=== PATIENT | female | born 1960 | race Caucasian/White ===

== ENCOUNTER 2019-01-14 06:20 | Day surgery (SDC) | payer OTHER ==
[~2019-01-14] VITALS: Ht 162.6 cm; Wt 140.6 kg
--- NOTE | ~2019-01-14 | OR ---
[facility] [address], [place] [address] Draft DATE OF OPERATION: 01/14/2019 SURGEON: Harper Agee MD PREOPERATIVE DIAGNOSIS: Colon screening. POSTOPERATIVE DIAGNOSIS: Extensive diverticulosis. No evidence of polyps. PROCEDURE: Total colonoscopy of cecum. ANESTHESIA: Intravenous sedation, fentanyl 100 mcg, Versed 4 mg. INDICATION: This 58-year-old white woman is a patient Dr. Leigh Ann Luna is referred for screening colonoscopy. She has no current bleeding, diarrhea or constipation, nor abdominal or perianal pain. She has no family history of colon cancer. She is admitted to undergo colonoscopy. She understands the risks of bleeding, infection, and perforation. FINDINGS: The prep was good. Complete colonoscopy was undertaken of the cecum without question. There were numerous diverticula most dominantly in the left and sigmoid areas, but diverticula extending into the right colon to a degree. There was no sign of polyps, colitis, or other abnormality. DESCRIPTION OF PROCEDURE: The patient was brought to the endoscopy suite, given intravenous sedation to a point of slurred speech and nystagmus with full cardiopulmonary monitoring. Digital rectal examination was found to be normal. An Olympus video colonoscope was passed in the rectum and manipulated throughout the colon noting numerous diverticula of the sigmoid and left colon. Once beyond the sigmoid, the scope was easily passed ultimately to the cecum. Ileocecal valve and appendiceal orifice were normal. The scope was withdrawn from that point and careful examination upon withdrawal of scope showed no sign of polyps or colitis, but numerous diverticula throughout. Retroflexed view of the rectum was normal. Scope was removed. The patient was taken to recovery room in good condition. PATIENT NAME: MATTIE VALENTIN OPERATIVE REPORT DATE OF : 64 REPORT #: [id number] PHYSICIAN: HARPER AGEE MD PCP: LEIGH ANN LUNA MD REPORT IS CONFIDENTIAL AND NOT TO BE RELEASED WITHOUT AUTHORIZATION [facility] [address], [place] [address] Draft CONCLUDING DIAGNOSIS: Diverticulosis. No evidence of polyps. PLAN: Repeat in 10 years or sooner if clinically indicated. Recommend high-fiber diet. She will return to the ongoing care of Dr. Luna. MD STEFFEN Darling/MODL /[id number] cc: Leigh Ann Luna MD Copies: LEIGH ANN LUNA MD ~ PATIENT NAME: LAVONNE VALENTINTIFFANY Lucas OPERATIVE REPORT DATE OF : 64 REPORT #: [id number] PHYSICIAN: HARPER AGEE MD PCP: LEIGH ANN LUNA MD REPORT IS CONFIDENTIAL AND NOT TO BE RELEASED WITHOUT AUTHORIZATION
[2019-01-14] MEDS ORDERED: ZOLOFT50 MG PO (06:41)
--- NOTE | 2019-01-14 08:00 | NUR ---
01/14/19 0800 Chrissy Santana 0753 PT ARRIVED TO PACU ON 3L VIA NC, RESP EVEN AND UNLABORED. PT AWAKE AND TALKING TO RN. PT DENIES PAIN AND NAUSEA. PT ENCOURAGED TO PASS GAS/AIR. PLAN OF CARE DISCUSSED. 0759 O2 NC REMOVED, O2 SAT 100%.
== END 2019-01-14 08:30 | disposition home or self-care (01) ==
LOC: OPS 06:20 → DS 06:20 → OPS 06:45 → DS 06:45 → OPS 08:30
PROVIDERS: Surgery
PROC: 0DJD8ZZ Inspection of Lower Intestinal Tract, Via Natural or Artificial Opening Endoscopic (ICD-10-PCS; principal; 2019-01-14 06:45)
DX: Z12.11 Encounter for screening for malignant neoplasm of colon (principal); K57.30 Diverticulosis of large intestine without perforation or abscess without bleeding; E66.01 Morbid (severe) obesity due to excess calories; F41.1 Generalized anxiety disorder; Z68.43 Body mass index [BMI] 50.0-59.9, adult; Z98.890 Other specified postprocedural states
CPT/HCPCS: 99153; G0500; J2250; J3010; J7120

== ENCOUNTER 2019-05-23 06:23 | Inpatient (IN) | payer OTHER ==
[~2019-05-23] VITALS: Ht 162.6 cm; Wt 138.8 kg
--- NOTE | ~2019-05-23 | DS ---
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 She presented to the emergency room on May 23, 2019, with significant epigastric and right upper abdominal pain. The day before in [place], [place], as an outpatient, she underwent a gallbladder ultrasound showing a 2.6 cm gallstone wedged in the infundibulum of the gallbladder. Her symptoms were persistent and on that basis, she presented to the emergency room where she was evaluated by Dr. Juan. Her primary physician is Dr. Luna in [place], but the patient lives in [place] commuting to [place] for work. Evaluation in the emergency room showed her to be tender in the right upper abdomen and although her lab studies were essentially normal, she was considered highly probable to have acute cholecystitis and on that basis, admitted for further evaluation and care. PAST MEDICAL HISTORY: Significant for uterine endometrial ablation as well as tonsillectomy. The only medication she takes is sertraline (Zoloft). She is not known to have diabetes, pulmonary or renal issues. SOCIAL HISTORY: She does not smoke or drink alcohol. PERTINENT PHYSICAL EXAMINATION: GENERAL: At the time of admission showed a morbidly obese woman, accompanied by her daughter. HEENT: Mucous membranes are slightly dry. Trachea midline. CHEST: Clear. HEART: Regular without murmur. ABDOMEN: Quite markedly obese with mild tenderness in the right upper abdomen. No sign of ascites. She had no clubbing, cyanosis, or edema. LABORATORY DATA: Laboratory studies showed a white count of only 8.8, hematocrit 40.8, platelets 248,000. Chem profile essentially normal. Globulin 3.7. Lipase normal and AST was 44. Other liver enzymes were normal. Urinalysis was normal except for 5 RBCs and squames were 2+. PATIENT NAME: MATTIE VALENTIN DISCHARGE SUMMARY DATE OF : 64 REPORT #: [id number] PHYSICIAN: HARPER AGEE MD PCP: LEIGH ANN LUNA MD REPORT IS CONFIDENTIAL AND NOT TO BE RELEASED WITHOUT AUTHORIZATION [facility] [address], [place] [address] Draft HOSPITAL COURSE: Her symptoms were mild but persistent. She was given intravenous antibiotics, parenteral pain medication, IV fluid resuscitation and so on. The following day on May 24, 2019, she underwent an attempt at laparoscopic cholecystectomy. She was found to have an impressively severe dense firm gallbladder with significant adherence of omental adhesions to the gallbladder. Though her morbid obesity was challenging enough, it was quite clear that a laparoscopic approach would be quite impossible to provide for cholecystectomy as intended. Conversion to open operation was undertaken. This was a very prolonged, complicated, and difficult operation. The gallbladder was markedly thickened far more so than her clinical picture would have revealed. Ultimately found was a single large gallstone as suspected obstructing the outlet of the gallbladder. There was occlusion of the cystic duct itself. There was purulence within the gallbladder itself, which was decompressed. Gram stain and cultures of the fluid showed only white cells, no organisms, though she had been on antibiotics preoperatively of course. A drain was placed. A cholangiogram was deemed meddlesome given the anatomic findings and was not performed. A drain was placed. Postoperatively, she had marked improvement. She was transitioned to meropenem antibiotic and ultimately to Augmentin based on the findings at operation. The drain was removed on postoperative day #1 as there was no sign of bile leak or other problem. She had progressive improvement and tolerating oral intake, ambulating well and pain controlled with amount of opiate medications, though Percocet was available as a backup. It is anticipated she will be discharged to home with Augmentin for five days. She is to ambulate as much as possible, so as to avoid complications of her obesity and immobility (DVT, etc.) She will return to me in approximately 2 weeks. If that needs to be modified, she will let me know. Her Steri-Strips were left in place. They are to be removed when they curl up on their own. If she has any problems upon discharge, she will let me know. DISCHARGE DIAGNOSES: 1. Severe acute calculous cholecystitis. 2. Status post laparoscopic converted to open cholecystectomy, prolonged, complicated, and difficult, May 24, 2019. 3. Super obesity (BMI greater than 52). 4. Anxiety disorder. DISCHARGE MEDICATIONS: PATIENT NAME: MATTIE VALENTIN DISCHARGE SUMMARY DATE OF : 64 REPORT #: [id number] PHYSICIAN: HARPER AGEE MD PCP: LEIGH ANN LUNA MD REPORT IS CONFIDENTIAL AND NOT TO BE RELEASED WITHOUT AUTHORIZATION [facility] [address] [place] [address] Draft 1. Ibuprofen 600 mg p.o. q.6 hours as needed for pain, #60, refill one. 2. Percocet 7.5/325 1-2 tabs q.6 hours as needed for pain, quantity #6, not 60 as printed. 3. Acetaminophen 1000 mg p.o. q.6 hours as needed for pain, #60. 4. Famotidine 20 mg p.o. q.12 hours, #60. 5. Amoxicillin/potassium clavulanate (Augmentin) 875 mg one p.o. b.i.d., #10. 6. She will continue with sertraline 50 mg p.o. daily. MD STEFFEN Darling/SANTIAGOL /[id number] cc: MD Darrian Phillips MD Copies: LEIGH ANN LUNA MD, MICHAEL MD ~ PATIENT NAME: MATTIE VALENTIN DISCHARGE SUMMARY DATE OF : 64 REPORT #: [id number] PHYSICIAN: HARPER AGEE MD PCP: LEIGH ANN LUNA MD REPORT IS CONFIDENTIAL AND NOT TO BE RELEASED WITHOUT AUTHORIZATION
[~2019-05-23 06:23] MED LIST: ZOLOFT100 MG PO
--- OUTSIDE RECORDS SUMMARY | 2019-05-23 06:26 | XMS ---
PreManage Notification: MATTIE VALENTIN Security Sausage Tier Events No recent Security Events currently on file CRITERIA MET - [facility] - 2 Visits in 30 Days CARE PROVIDERS Jerrod Luna MD PHONE: Unknown Aparna has no Care Guidelines for this patient. [place] VISIT COUNT (12 MO.) 1 Petey Musa [facility] TOTAL 2 NOTE: Visits indicate total known visits. ED/UCC VISIT TRACKING (12 MO.) 05/23/2019 06:24 JUVENTINO [place] TYPE: Emergency COMPLAINT: - POSS CHOLECYSTITIS 04/28/2019 00:05 Petey DA SILVA [place] TYPE: Emergency DIAGNOSES: - Chest Pressure - Essential (primary) hypertension - Other chest pain - chest pain INPATIENT VISIT TRACKING (12 MO.) No inpatient visits to display in this time frame [id number]
[2019-05-23] MEDS ORDERED: IBUPROFEN200 M1 PO (09:39)
[2019-05-25] MEDS ORDERED: IBUPROFEN600 MG PO (13:09)
[2019-05-25] MEDS ORDERED: OXYCODON-ACETA1 EAC2 PO (13:10)
[2019-05-25] MEDS ORDERED: TYLENOL EXTRA500 MG PO (13:10)
[2019-05-25] MEDS ORDERED: FAMOTIDINE20 MG PO (13:10)
--- NOTE | 2019-05-25 16:41 | HP ---
[facility] [address] [place], [place] [address] Signed ADMISSION DATE: 05/23/2019 REASON FOR ADMISSION: Acute calculous cholecystitis. HISTORY OF PRESENT ILLNESS: This morbidly obese 58-year-old white woman (BMI 52.5) has had a week history of intermittent upper abdominal pain in the postprandial time frame. She has had no fever or chills. No nausea or vomiting, but recurrent pain following eating. She underwent an ultrasound of the right upper abdomen at the [facility] showing a 2.6 cm gallstone with gallbladder wall thickening and edema. She subsequently presented to the emergency room, where she was evaluated by Dr. Juan today confirming those findings and noting normal appearing liver enzymes and other lab studies. Given her tenderness, pain, and findings on ultrasound, she was admitted for further evaluation and care for acute calculous cholecystitis. PAST MEDICAL HISTORY: Dominantly significant for her morbid obesity. She is post menopausal. She has undergone uterine ablated therapy in the past. She does have anxiety as an underlying issue. She has undergone tonsillectomy as well as uterine ablation as noted. MEDICATIONS: She takes sertraline (Zoloft) 50 mg daily, but no other medications. ALLERGIES: She has no known drug allergies. SOCIAL HISTORY: The patient does not smoke, does not drink alcohol, and has no drug use. SOCIAL HISTORY: She is accompanied by her daughter. They live in [place] currently, intending to live close in [place] in the future. 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 REVIEW OF SYSTEMS: She denies any shortness of breath or chest pain. Her pain is in the right subcostal area predominantly. She does not currently have severe pain nor vomiting. PHYSICAL EXAMINATION: Electronically Signed By: HARPER AGEE MD 05/25/19 6115 PATIENT NAME: MATTIE VALENTIN HISTORY AND PHYSICAL DATE OF : 64 REPORT #: [id number] PHYSICIAN: HARPER AGEE MD PCP: LEIGH ANN LUNA MD REPORT IS CONFIDENTIAL AND NOT TO BE RELEASED WITHOUT AUTHORIZATION [facility] [address], [place] [address] Signed GENERAL: A morbidly obese woman accompanied by her daughter. Mucous membranes are slightly dry. Trachea is midline. CHEST: Clear. HEART: Regular without murmur. ABDOMEN: Quite markedly obese. She has mild tenderness in the right upper abdomen. There is no ascites that is noted. EXTREMITIES: Show no clubbing, cyanosis, or edema. She her ultrasound was actually performed in [place], [place], and it is not available for my review at this time. We have only the report related to it. She remains a patient of Dr. Luna it is noted. LABORATORY STUDIES: Obtained today show white count of 8.8, hematocrit of 40.8, platelets of 248,000. Chem profile is essentially normal. Globulin is 3.7, slightly elevated. Lipase normal at 28, AST is 44. Other liver enzymes normal. Urinalysis is normal except for 5 RBCs and 5 red cells. Squames are 2+ however. ASSESSMENT: Her history of upper abdominal pain and ultrasound performed in [place] showing a 2.6 cm gallstone within infundibulum are consistent with acute calculous cholecystitis. Although her morbid obesity is notable, a cholecystectomy remains indicated. The laparoscopic approach would be preferable. The risks of bleeding, infection, bile duct injury need for open procedure, and of course failure to cure her symptoms was reviewed in detail with her. For the time being, we will resuscitate with additional fluid. Initiate IV antibiotics, DVT prophylaxis, anticipating cholecystectomy later in the day if possible. MD STEFFEN Darling/SANTIAGOL /[id number] cc: Darrian Juan MD Electronically Signed By: HARPER AGEE MD 05/25/19 1641 PATIENT NAME: MATTIE VALENTIN HISTORY AND PHYSICAL DATE OF : 64 REPORT #: [id number] PHYSICIAN: HARPER AGEE MD PCP: LEIGH ANN LUNA MD REPORT IS CONFIDENTIAL AND NOT TO BE RELEASED WITHOUT AUTHORIZATION [address] [address] Signed Leigh Ann Luna MD Copies: DARRIAN JUAN MD, JONATHAN MD ~ Electronically Signed By: HARPER AGEE MD 05/25/19 1641 PATIENT NAME: MATTIE VALENTIN HISTORY AND PHYSICAL DATE OF : 64 REPORT #: [id number] PHYSICIAN: HARPER AGEE MD PCP: LEIGH ANN LUNA MD REPORT IS CONFIDENTIAL AND NOT TO BE RELEASED WITHOUT AUTHORIZATION
--- NOTE | 2019-05-25 16:41 | OR ---
[facility] [address] [place], [place] [address] Signed DATE OF OPERATION: 05/24/2019 SURGEON: Harper Agee MD PREOPERATIVE DIAGNOSES: 1. Acute calculous cholecystitis. 2. Super obesity, BMI greater than 52. POSTOPERATIVE DIAGNOSES: 1. Severe cholecystitis with dense omental adhesions. 2. Pus-filled gallbladder and "white bile.". 3. Super obesity. PROCEDURE: Laparoscopy with conversion to open cholecystectomy, prolonged, complicated, and difficult. ANESTHESIA: General endotracheal, Harper Dougherty CRNA, and local 10 mL of 0.25% Marcaine with epinephrine. 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 She lives in [place], [place] and has had problems of right subcostal pain for quite some time. Her symptoms have been worsening recently and two days ago, she underwent an outpatient gallbladder ultrasound in [facility] with the assistance of her daughter who is an x-ray technologist at [employer] in [place]. This showed a 2.6 cm gallstone wedged in the infundibulum of the gallbladder. She presented to the emergency room yesterday where she was evaluated by Dr. Juan confirming probable acute cholecystitis. She did not have systemic toxicity. White count was normal, but tenderness in right subcostal area. She was admitted, given intravenous antibiotics, parenteral pain medication so forth, and now is to undergo cholecystectomy preferably by laparoscopic approach. The risks of bleeding, infection, bile duct injury, need for open procedure, and need for other indicated procedures were reviewed in detail. She understands and wished to proceed. FINDINGS: A super obesity made for challenging operation in and of itself. However, the gallbladder was impressively, chronically, and acutely inflamed. Dense omental adhesions could not be taken down laparoscopically from the gallbladder despite efforts Electronically Signed By: HARPER AGEE MD 05/25/19 1641 PATIENT NAME: MATTIE VALENTIN OPERATIVE REPORT DATE OF : 64 REPORT #: [id number] PHYSICIAN: HARPER AGEE MD PCP: LEIGH ANN PRINCE MD REPORT IS CONFIDENTIAL AND NOT TO BE RELEASED WITHOUT AUTHORIZATION [facility] [address] [place], [place] [address] Signed to do so. On that basis, conversion to open operation was required. As expected, she did have fatty infiltration of the liver. The gallbladder itself was markedly tense, distended, and impressively thickened. Decompression of the gallbladder showed pure pus from the gallbladder lumen and there was no pigmentation of the bile consistent with "white bile" indicative of longstanding obstruction of a gallbladder and occlusion of cystic duct. With meticulous care, but with conversion to open operation, complete cholecystectomy was undertaken. A cholangiogram was not feasible and was not performed. There were no other findings of concern. The operation was prolonged, complicated, and difficult lasting 2-1/2 hours certainly 4 times longer than most cholecystectomies even for acute cholecystitis. DESCRIPTION OF PROCEDURE: The patient was brought to the operating room, given a general endotracheal anesthetic with all due care given her significant super obesity. Sequential compression device stockings were used and she has been on heparin subcutaneously since admission. Preoperative antibiotic Ancef had been given early in the morning. The abdomen was prepared with a chlorhexidine solution and draped sterilely. A supraumbilical incision was made and using an open Marcus cannula technique, the abdomen was entered and pneumoperitoneum was achieved to a level of 14 mmHg of carbon dioxide gas. Intraabdominal inspection showed impressive inflammation of the gallbladder. It was densely adherent to the omentum. An epigastric 12 mm port was placed and manipulation of the omentum over the gallbladder was difficult to identify the apex of the gallbladder. A right-sided midclavicular 5 mm port was placed under direct visualization with two-hand dissection. The lateral aspect of the gallbladder could be identified the omentum laterally. In the medial part, however, the omentum was essentially fused with the gallbladder. Distinguishing liver from gallbladder was not that easy either. Options included simple decompression of the gallbladder, which would be inadequate given her anatomic and pathologic findings known preoperatively. Various manipulations were made to attempt to free the gallbladder to allow for laparoscopic approach, however, it was quite clear. It would be impossible. On that basis, conversion to open operation was deemed advisable. The trocars were removed and the supraumbilical fascial incision reapproximated with interrupted #0 Vicryl suture as well as interrupted #0 PDS suture. The right subcostal incision was made in the standard way. The abdomen was entered without problem. The right rectus abdominis was divided to allow for this exposure. A Bookwalter retractor with extension was applied to the upper abdomen and exposure of the gallbladder undertaken. With blunt electrocautery dissection, the densely adherent omentum was freed from the gallbladder entirely. Markedly distended, inflamed, and thickened gallbladder was noted. It felt rock-hard. A pursestring suture of 2-0 Vicryl was placed at the apex of the gallbladder and the Electronically Signed By: HARPER AGEE MD 05/25/19 8564 PATIENT NAME: MATTIE VALENTIN OPERATIVE REPORT DATE OF : 64 REPORT #: [id number] PHYSICIAN: HARPER AGEE MD PCP: LEIGH ANN PRINCE MD REPORT IS CONFIDENTIAL AND NOT TO BE RELEASED WITHOUT AUTHORIZATION [facility] [address] [place], [place] [address] Signed gallbladder entered with electrocautery. Immediately drainage of clear bile without sign of bile pigmentation (so-called white bile) was noted. Further decompression showed purulence emanating from the gallbladder itself. Gram stain and cultures were obtained of this material. Once it was completely decompressed, it still remained a thickened, leathery, and markedly inflamed gallbladder with adhesions in the infundibulum that were significant. A ring clamp was applied to the apex of the gallbladder at the puncture site. With meticulous care, soft tissue was freed from the infundibular area, mindful of the position of the duodenum, and other structures. Ultimately, quite excellent exposure could be obtained of the gallbladder. Using the electrocautery, the peritoneum overlying the gallbladder was incised anteriorly, laterally, and inferiorly, and a plane developed between the gallbladder and the hepatic bed itself. Using tonsil clamp and two-person technique, the peritoneum was more fully incised and blunt dissection using Kittners, the index finger, and so forth allowed for the avascular plane to be developed from overlying liver itself. Once down to the area of the infundibulum, more distortion of the tissue was noted. Meticulous care was maintained to avoid excessive dissection to injure the common bile duct or common hepatic duct. A very enlarged pericholecystic lymph node was noted. This was maintained with the specimen. Ultimately, the area of the cystic duct could be identified and it was completely occluded and obliterated. This area was ultimately transected. The gallbladder was passed off the table, opened on the back table by the circulating nurse, and found to have impressive inflammatory change of the mucosa. A single large rounded gallstone. No sign of neoplasm proper. Reinspection of subhepatic space showed no sign of bile leak or bleeding. The area in corresponding to the cystic duct was oversewn with a single 2-0 silk suture. Small clips in the area. Two cystic arterial branches were left in situ. Distortion of the tissue in the area was such that efforts at a cholangiogram even with butterfly needle to the common bile duct were deemed meddlesome and not warranted under the circumstances. Through a separate small stab incision, a 7 mm flat Leonel drain was placed in the subhepatic space. Irrigation was undertaken copiously. The wound was then closed. The posterior sheath and its attendant peritoneum were reapproximated with running #1 PDS suture. Muscular layer was irrigated. The anterior rectus sheath similarly reapproximated. Subcutaneous space was irrigated and the skin closed with running subcuticular 3-0 Vicryl. The supraumbilical skin was closed with interrupted 3-0 Vicryl as well as Steri-Strips were applied. The drain was attached to bulb suction, showing no sign of bile leak or other adverse finding. A Mepilex silver sponge dressing was applied as well as an OpSite. The patient was ultimately extubated and transferred to recovery in good condition having suffered no complication. Blood loss was estimated at 100 mL. Sponge, needle, and instrument counts reported as correct x3. Electronically Signed By: HARPER AGEE MD 05/25/19 1641 PATIENT NAME: MATTIE VALENTIN OPERATIVE REPORT DATE OF : 64 REPORT #: [id number] PHYSICIAN: HARPER AGEE MD PCP: LEIGH ANN PRINCE MD REPORT IS CONFIDENTIAL AND NOT TO BE RELEASED WITHOUT AUTHORIZATION [place] [address] [place] [address] Signed MD STEFFEN Darling/MODL /[id number] cc: MD Darrian Phillips MD Copies: LEIGH ANN PRINCE MD, MICHAEL MD ~ Electronically Signed By: HARPER AGEE MD 05/25/19 1641 PATIENT NAME: BARBIEMATTIETIFFANY SIMON OPERATIVE REPORT DATE OF : 64 REPORT #: [id number] PHYSICIAN: HARPER AGEE MD PCP: LEIGH ANN PRINCE MD REPORT IS CONFIDENTIAL AND NOT TO BE RELEASED WITHOUT AUTHORIZATION
[2019-05-26] MEDS ORDERED: AMOX TR-K CLV1 EAC1 PO (09:43)
[2019-05-26] MEDS ORDERED: OXYCODON-ACETA1 EAC2 PO (09:54)
--- NOTE | 2019-05-27 12:58 | PATH ---
[facility] [address] [facility] [place], [place] [address] Signed SPECIMEN(S): A GALLBLADDER AND GALLSTONE SPECIMEN SOURCE: A. GALLBLADDER AND GALLSTONE CLINICAL HISTORY: Acute calculous cholecystitis. FINAL PATHOLOGIC DIAGNOSIS: Gallbladder, cholecystectomy: - Acute calculous cholecystitis with focal abscess formation. - One benign lymph node. - No evidence of malignancy. NAL:cml:C2NR MICROSCOPIC EXAMINATION: Histologic sections of all submitted blocks are examined by light microscopy. These findings, together with the gross examination, support the pathologic diagnosis. GROSS DESCRIPTION: The specimen, labeled "DS, gallbladder and gallstone," is received in formalin and consists of Specimen: Previously opened gallbladder. Dimensions: 9.1 x 4.0 x 3.8 cm. Serosa: Silveira-brown and smooth. Cystic Duct: Unobstructed. Calculi: Includes a 2.6 x 2.3 x 2.1 cm dark brown granular stone. Mucosa: Dark brown and velvety with roughened areas. Wall thickness: 0.3-1.1 cm. Lymph node: Includes a 1.1 cm silveira pericystic lymph node Additional: None. [employer] sections are submitted in cassette (A1). AM (under the direct supervision of a pathologist) The Gross Description was prepared using a voice recognition system. The report was reviewed for accuracy; however, sound-alike word errors, addition and/or deletions may occur. If there is any question about this report, please contact Client Services. PERFORMING LABORATORY: The technical component was performed by [employer], Radha Aly, PATIENT NAME: MATTIE VALENTIN PATHOLOGY DATE OF : 64 REPORT #: [id number] PHYSICIAN: BALDEMAR HANEY PCP: LEIGH ANN PRINCE MD REPORT IS CONFIDENTIAL AND NOT TO BE RELEASED WITHOUT AUTHORIZATION [facility] [address] [place], [place] [address] [place] [address] ([employer] Installer: Chelsea Fritz MD; CLIA# [id number]). Professional interpretation was performed by [employer], [facility], [address] [place] [id number] (CLIA# [id number]). Diagnostician: Crystal Andrade MD Pathologist Electronically Signed 05/27/2019 Copies: ~ PATIENT NAME: MATTIE VALENTIN PATHOLOGY DATE OF : 64 REPORT #: [id number] PHYSICIAN: BALDEMAR HANEY PCP: LEIGH ANN PRINCE MD REPORT IS CONFIDENTIAL AND NOT TO BE RELEASED WITHOUT AUTHORIZATION
== END 2019-05-26 12:33 | disposition home or self-care (01) | DRG 415 ==
LOC: ED → MS 06:25
PROVIDERS: ADMIT Surgery
PROC: 0FJ44ZZ Inspection of Gallbladder, Percutaneous Endoscopic Approach (ICD-10-PCS; 2019-05-24)
PROC: 0FT40ZZ Resection of Gallbladder, Open Approach (ICD-10-PCS; principal; 2019-05-24 12:00)
DX: K80.12 Calculus of gallbladder with acute and chronic cholecystitis without obstruction (principal); Z68.43 Body mass index [BMI] 50.0-59.9, adult; E66.01 Morbid (severe) obesity due to excess calories; K76.0 Fatty (change of) liver, not elsewhere classified; F41.9 Anxiety disorder, unspecified; Z79.899 Other long term (current) drug therapy; Z88.8 Allergy status to other drugs, medicaments and biological substances; Z53.31 Laparoscopic surgical procedure converted to open procedure
CPT/HCPCS: 00790; 36415; 80053; 81001; 82247; 82465; 83615; 83690; 84100; 84478; 84550; 85025; 96361; 96365; 96366; 96372; 96374; 96375; 96376; 99284-25; G0378; J0131; J0330; J0690; J1100; J1170; J1644; J1885; J2185; J2250; J2270; J2405; J2704; J2765; J3010; J7030; J7120